=== PATIENT | male | born 1950 | race Caucasian/White ===

== ENCOUNTER 2020-12-01 02:01 | Day surgery (SDC) | payer MEDICARE, BC ==
[2020-12-01] MEDS ORDERED: Sodium Chloride 0.9% 10 ML Syringe FLUSH PRN (02:33)
[2020-12-01] MEDS ORDERED: Ondansetron 4 MG/2 ML SDV IVPUSH ONE (02:34)
[2020-12-01] MEDS ORDERED: Sodium Chloride 0.9% 1,000 ML IV ONE (02:34)
[2020-12-01] MEDS ORDERED: HYDROmorphone 1 MG/ML Syringe IVPUSH ONE ×2 (02:34→08:36)
--- NOTE | 2020-12-01 03:24 | EDM.PDOC ---
ED HPI GENERAL MEDICAL PROBLEM - General Chief Complaint: Abdominal Pain Stated Complaint: UPPER ABDOMINAL PAIN/VOMITING Time Seen by Provider: 12/01/20 02:25 Source of Information: Reports: Patient History Limitations: Reports: No Limitations - History of Present Illness INITIAL COMMENTS - FREE TEXT/NARRATIVE: Patient is a 70-year-old male who complains of having severe epigastric pain started about 6:00 last night after he was eating dinner. Patient did have a fatty meal including several hotdogs. He denies ever having similar symptoms denies any radiation of the pain but states it is severe close to 10 out of 10 in intensity. Patient has vomited twice denies any diarrhea any bloody or tarry stools or any hematemesis. He did take some Tylenol and ibuprofen which did not give him any relief. He denies any dysuria hematuria or flank pain. Patient denies any past surgical history. He does not drink alcohol. Onset: Today Duration: Hour(s): (8), Getting Worse Location: Reports: Abdomen Quality: Reports: Ache, Sharp Severity: Severe Improves with: Reports: None Worsens with: Reports: Eating, Movement Associated Symptoms: Reports: Nausea/Vomiting. Denies: Chest Pain, Cough, Fever/Chills, Shortness of Breath Treatments [employer]: Reports: Acetaminophen, NSAIDS Epigastric Pain Score (Numeric/FACES): 10 - Related Data Allergies Allergy/AdvReac Type Severity Reaction Status Date / Time No Known Allergies Allergy Verified 12/01/20 02:15 Home Meds: Home Meds Tamsulosin [Flomax] 0.4 mg PO DAILY 12/01/20 [History] Past Medical History - Infectious Disease History Infectious Disease History: Reports: Novel Coronavirus Social & Family History - Tobacco Use Tobacco Use Status *Q: Never Tobacco User ED ROS GENERAL - Review of Systems Review Of Systems: Comprehensive ROS is negative, except as noted in HPI. ED EXAM, GI/ABD - Physical Exam Exam: See Below Exam Limited By: No Limitations General Appearance: Alert, Moderate Distress Head: Atraumatic Neck: Normal Inspection, Supple Respiratory/Chest: No Respiratory Distress, Lungs Clear, Normal Breath Sounds Cardiovascular: Regular Rate, Rhythm, No JVD GI/Abdominal Exam: Tender, Abnormal Bowel Sounds. No: Distended, Guarding, Hepatomegaly, Splenomegaly Back Exam: Normal Inspection Extremities: Normal Inspection, No Pedal Edema Neurological: Alert, Oriented Psychiatric: Normal Affect Skin Exam: Warm, Dry, Normal Color Course - Vital Signs Text/Narrative:: Patient's lab work appears to be normal. He is feeling much better with IV fluids and 1 mg Dilaudid. Patient states his pain is down to a 1 out of 10 in intensity. Patient's lactate returned elevated at 2.5. He has a mild bandemia with 72 neutrophils and [address] scan is showing that he has cholelithiasis with thickening of his gallbladder wall consistent with acute cho lecystitis. Patient was discussed with Dr. Enriquez who did not want a ultrasound of the gallbladder and after consultation with anesthesia over patient's bradycardia it was decided that he could have is cholecystectomy done here. She has asked me to write bridging orders which I have done and he has had a dose of cefoxitin 2 g IV and continuing IV fluids while were waiting for the repeat lactate. Patient is aware of this plan and he looks dramatically improved from his previous symptoms upon arrival. Last Recorded V/S: Last Vital Signs Temp 98.2 F 12/01/20 02:12 Pulse 86 12/01/20 02:12 Resp 18 12/01/20 02:12 BP 190/108 H 12/01/20 02:12 Pulse Ox 99 12/01/20 02:12 - Orders/Labs/Meds Orders: Active Orders 24 hr Category Date Time Status EKG Documentation Completion [RC] STAT Care 12/01/20 04:25 Active Peripheral IV Care [RC] . DIRECTED Care 12/01/20 02:34 Active Abdomen Ltd [US] Stat Exams 12/01/20 05:21 Stop Req Abdomen Pelvis w Cont [CT] Stat Exams 12/01/20 02:33 Taken CORONAVIRUS COVID-19 TERI [MOLEC] Stat Lab 12/01/20 06:16 Ordered LACTIC ACID [CHEM] Stat Lab 12/01/20 05:55 Received Sodium Chloride 0.9% [Normal Saline] 100 ml Med 12/01/20 04:30 Active IV ASDIRECTED Sodium Chloride 0.9% [Saline Flush] Med 12/01/20 02:33 Active 10 ml FLUSH ASDIRECTED PRN Sodium Chloride 0.9% [Saline Flush] Med 12/01/20 04:30 Active 10 ml FLUSH BOLUS cefOXitin [Mefoxin in Dextrose,Iso-Osm 2 GM/50 ML] 2 gm Med 12/01/20 06:10 Ordered Premix Bag 1 bag IV ONETIME Peripheral IV Insertion Adult [OM.PC] Routine Oth 12/01/20 02:32 Ordered Medication Orders Sodium Chloride (Normal Saline) 100 mls @ 60 drops/min IV ASDIRECTED SABINE Last Admin: 12/01/20 04:46 Dose: 60 drops/min Documented by: ONEIGIN Cefoxitin Sodium 2 gm/ Premix 50 mls @ 100 mls/hr IV ONETIME ONE Stop: 12/01/20 06:39 Sodium Chloride (Sodium Chloride 0.9% 10 Ml Syringe) 10 ml FLUSH ASDIRECTED PRN PRN Reason: Keep Vein Open Last Admin: 12/01/20 02:45 Dose: 10 ml Documented by: ESTELLE Sodium Chloride (Sodium Chloride 0.9% 10 Ml Syringe) 10 ml FLUSH BOLUS SABINE Labs: Laboratory Tests 12/01/20 12/01/20 12/01/20 Range/Units 02:10 02:10 02:10 WBC 8.90 (4.23-9.07) K/mm3 RBC 5.05 (4.63-6.08) M/mm3 Hgb 15.6 (13.7-17.5) gm/dl Hct 45.0 (40.1-51.0) % MCV 89.1 (79.0-92.2) fl MCH 30.9 (25.7-32.2) pg MCHC 34.7 (32.2-35.5) g/dl RDW Std Deviation 39.4 (35.1-43.9) fL Plt Count 181 (163-337) K/mm3 MPV 9.4 (9.4-12.3) fl Neutrophils % (Manual) 72 H (40-60) % Band Neutrophils % 2 (0-10) % Lymphocytes % (Manual) 20 (20-40) % Atypical Lymphs % 0 % Monocytes % (Manual) 6 (2-10) % Eosinophils % (Manual) 0 L (0.8-7.0) % Basophils % (Manual) 0 L (0.2-1.2) Platelet Estimate Adequate Plt Morphology Comment Normal RBC Morph Comment Normal Sodium 143 (136-145) mEq/L Potassium 3.6 (3.5-5.1) mEq/L Chloride 104 (98-107) mEq/L Carbon Dioxide 24 (21-32) mEq/L Anion Gap 18.6 H (5-15) BUN 17 (7-18) mg/dL Creatinine 1.4 H (0.7-1.3) mg/dL Est Cr Clr Drug Dosing 57.08 mL/min Estimated GFR (MDRD) 50 (>60) mL/min BUN/Creatinine Ratio 12.1 L (14-18) Glucose 146 H (70-99) mg/dL Lactic Acid (0.4-2.0) mmol/L Calcium 9.1 (8.5-10.1) mg/dL Total Bilirubin 0.7 (0.2-1.0) mg/dL AST 26 (15-37) U/L ALT 39 (16-63) U/L Alkaline Phosphatase 84 (46-116) U/L Troponin I < 0.017 (0.00-0.056) ng/mL Total Protein 7.7 (6.4-8.2) g/dl Albumin 4.1 (3.4-5.0) g/dl Globulin 3.6 gm/dL Albumin/Globulin Ratio 1.1 (1-2) Lipase 55 L (73-393) U/L /07/23 Range/Units 02:50 WBC (4.23-9.07) K/mm3 RBC (4.63-6.08) M/mm3 Hgb (13.7-17.5) gm/dl Hct (40.1-51.0) % MCV (79.0-92.2) fl MCH (25.7-32.2) pg MCHC (32.2-35.5) g/dl RDW Std Deviation (35.1-43.9) fL Plt Count (163-337) K/mm3 MPV (9.4-12.3) fl Neutrophils % (Manual) (40-60) % Band Neutrophils % (0-10) % Lymphocytes % (Manual) (20-40) % Atypical Lymphs % % Monocytes % (Manual) (2-10) % Eosinophils % (Manual) (0.8-7.0) % Basophils % (Manual) (0.2-1.2) Platelet Estimate Plt Morphology Comment RBC Morph Comment Sodium (136-145) mEq/L Potassium (3.5-5.1) mEq/L Chloride (98-107) mEq/L Carbon Dioxide (21-32) mEq/L Anion Gap (5-15) BUN (7-18) mg/dL Creatinine (0.7-1.3) mg/dL Est Cr Clr Drug Dosing mL/min Estimated GFR (MDRD) (>60) mL/min BUN/Creatinine Ratio (14-18) Glucose (70-99) mg/dL Lactic Acid 2.5 H* (0.4-2.0) mmol/L Calcium (8.5-10.1) mg/dL Total Bilirubin (0.2-1.0) mg/dL AST (15-37) U/L ALT (16-63) U/L Alkaline Phosphatase (46-116) U/L Troponin I (0.00-0.056) ng/mL Total Protein (6.4-8.2) g/dl Albumin (3.4-5.0) g/dl Globulin gm/dL Albumin/Globulin Ratio (1-2) Lipase (73-393) U/L Meds: Medications Generic Name Dose Route Start Last Admin Trade Name Freq PRN Reason Stop Dose Admin Sodium Chloride 100 mls @ 60 drops/min 12/01/20 04:30 12/01/20 04:46 Normal Saline IV 60 drops/min ASDIRECTED SABINE Administration Cefoxitin Sodium 2 gm/ Premix 50 mls @ 100 mls/hr 12/01/20 06:10 IV 12/01/20 06:39 ONETIME ONE Sodium Chloride 10 ml 12/01/20 02:33 12/01/20 02:45 Sodium Chloride 0.9% 10 Ml Syringe FLUSH 10 ml ASDIRECTED PRN Administration Keep Vein Open Sodium Chloride 10 ml 12/01/20 04:30 Sodium Chloride 0.9% 10 Ml Syringe FLUSH BOLUS SABINE Discontinued Medications Generic Name Dose Route Start Last Admin Trade Name Freq PRN Reason Stop Dose Admin Hydromorphone HCl 1 mg 12/01/20 02:34 12/01/20 02:41 Hydromorphone 1 Mg/Ml Syringe IVPUSH 12/01/20 02:35 1 mg ONETIME ONE Administration Hydromorphone HCl 0.5 mg 12/01/20 04:00 12/01/20 04:04 Hydromorphone 0.5 Mg/0.5 Ml Syringe IVPUSH 12/01/20 04:01 0.5 mg ONETIME ONE Administration Sodium Chloride 1,000 mls @ 1,000 mls/hr 12/01/20 02:34 12/01/20 02:40 Normal Saline IV 12/01/20 03:33 1,000 mls/hr ONETIME ONE Administration Piperacillin Sod/Tazobactam 100 mls @ 200 mls/hr 12/01/20 05:23 Sod 4.5 gm/ Sodium Chloride IV 12/01/20 05:52 ONETIME ONE Iopamidol 100 ml 12/01/20 04:18 12/01/20 04:46 Iopamidol 612 Mg/Ml 100 Ml Bottle IVPUSH 12/01/20 04:19 100 ml ONETIME ONE Administration Ondansetron HCl 4 mg 12/01/20 02:34 12/01/20 02:40 Ondansetron 4 Mg/2 Ml Sdv IVPUSH 12/01/20 02:35 4 mg ONETIME ONE Administration Departure - Departure Time of Disposition: 06:22 Disposition: Refer to Observation Condition: Good Clinical Impression: Cholecystitis - Discharge Information Referrals: Efrain Brooks MD [Primary Care Provider] - Forms: ED Department Discharge Sepsis Event Note (ED) - Evaluation Sepsis Screening Result: No Definite Risk - Focused Exam Vital Signs: Vital Signs Temp Pulse Resp BP Pulse Ox 12/01/20 02:12 98.2 F 86 18 190/108 H 99 - My Orders Last 24 Hours: My Active Orders 12/01/20 02:32 Peripheral IV Insertion Adult [OM.PC] Routine 12/01/20 02:33 Abdomen Pelvis w Cont [CT] Stat Sodium Chloride 0.9% [Saline Flush] 10 ml FLUSH ASDIRECTED PRN 12/01/20 02:34 Peripheral IV Care [RC] . DIRECTED 12/01/20 04:25 EKG Documentation Completion [RC] STAT 12/01/20 04:30 Sodium Chloride 0.9% [Normal Saline] 100 ml IV ASDIRECTED Sodium Chloride 0.9% [Saline Flush] 10 ml FLUSH BOLUS 12/01/20 05:21 Abdomen Ltd [US] Stat 12/01/20 05:55 LACTIC ACID [CHEM] Stat 12/01/20 06:10 cefOXitin [Mefoxin in Dextrose,Iso-Osm 2 GM/50 ML] 2 gm Premix Bag 1 bag IV ONETIME 12/01/20 06:16 CORONAVIRUS COVID-19 TERI [MOLEC] Stat - Assessment/Plan Last 24 Hours: My Active Orders 12/01/20 02:32 Peripheral IV Insertion Adult [OM.PC] Routine 12/01/20 02:33 Abdomen Pelvis w Cont [CT] Stat Sodium Chloride 0.9% [Saline Flush] 10 ml FLUSH ASDIRECTED PRN 12/01/20 02:34 Peripheral IV Care [RC] . DIRECTED 12/01/20 04:25 EKG Documentation Completion [RC] STAT 12/01/20 04:30 Sodium Chloride 0.9% [Normal Saline] 100 ml IV ASDIRECTED Sodium Chloride 0.9% [Saline Flush] 10 ml FLUSH BOLUS 12/01/20 05:21 Abdomen Ltd [US] Stat 12/01/20 05:55 LACTIC ACID [CHEM] Stat 12/01/20 06:10 cefOXitin [Mefoxin in Dextrose,Iso-Osm 2 GM/50 ML] 2 gm Premix Bag 1 bag IV ONETIME 12/01/20 06:16 CORONAVIRUS COVID-19 TERI [MOLEC] Stat
[2020-12-01] MEDS ORDERED: HYDROmorphone 0.5 MG/0.5 ML Syringe IVPUSH ONE ×2 (04:00→06:21)
[2020-12-01] MEDS ORDERED: Iopamidol 612 MG/ML 100 ML Bottle IVPUSH ONE (04:18)
[2020-12-01] MEDS ORDERED: Sodium Chloride 0.9% 100 ML IV SCH (04:30)
[2020-12-01] MEDS ORDERED: Sodium Chloride 0.9% 10 ML Syringe FLUSH SCH (04:30)
[2020-12-01] MEDS ORDERED: Piperacillin/Tazobactam 4.5 GM in Sodium Chloride 0.9% 100 ML IV ONE (05:23)
[2020-12-01] MEDS ORDERED: cefOXitin 2 GM in Premix Bag 1 BAG IV ONE (06:10)
--- NOTE | 2020-12-01 07:35 | CT ---
CT abdomen and pelvis Technique: Multiple axial sections were obtained from above the dome of the diaphragm inferiorly through the pubic symphysis. Delayed images were also obtained through the abdomen and pelvis. Reconstructed coronal and sagittal images were obtained. Comparison: No prior CT abdomen or pelvis study is available. Findings: Visualized lung bases show nothing acute. Liver contains no focal abnormality. Gallbladder is slightly distended. Difficult to evaluate for gallbladder wall thickening on CT exam. No surrounding inflammatory change is seen. No calcified gallstones are definitely present. There is contrast noted within the distal esophagus compatible with reflux. Spleen is normal. Adrenal glands show no nodule. Kidneys show symmetric contrast enhancement without hydronephrosis or mass. Delayed images show a small amount of contrast within nondilated ureters. Abdominal aorta shows atherosclerotic change with no aneurysm. No retroperitoneal adenopathy is seen. Pancreas shows no discrete abnormality. No mesenteric abnormalities are seen. Appendix is not visualized with certainty. No pelvic mass or adenopathy is definitely seen. Some portions of the pelvis are not seen due to artifact caused by bilateral hip prostheses. Minimal diverticulosis is seen. No inflammatory change or free fluid is seen. Bone window settings were reviewed which show scattered endplate spurring within the spine with mild degenerative apophyseal change. No acute osseous abnormality is appreciated. Impression: 1. Slightly distended gallbladder. Please correlate if patient has right upper quadrant symptoms to indicate gallbladder ultrasound. 2. Mild gastroesophageal reflux. 3. Other findings believed to be nonacute as described above. Diagnostic code #2 I agree with preliminary report from [facility], finalized on 12/01/20, 6:10 AM CDT, code 1
--- NOTE | 2020-12-01 07:48 | PCM.PREANE ---
Preanesthetic Assessment - Procedure Proposed Procedure: lap Eloisa - Anesthesia/Transfusion/Family Hx Anesthesia History: Prior Anesthesia Without Reaction Family History of Anesthesia Reaction: No Transfusion History: No Prior Transfusion(s) - Review of Systems General: Fatigue Pulmonary: No Symptoms Cardiovascular: No Symptoms Gastrointestinal: Abdominal Pain, Nausea Neurological: Numbness (comes goes in left hand) Other: Reports: None, Neck Pain (from diving as a kid) - Physical Assessment NPO Status Date: 12/01/20 NPO Status Time: 04:00 Vital Signs: Last Vital Signs Temp 36.8 C 12/01/20 02:12 Pulse 86 12/01/20 02:12 Resp 18 12/01/20 02:12 BP 190/108 H 12/01/20 02:12 Pulse Ox 99 12/01/20 02:12 Height: 1.88 m Weight: 90.718 kg ASA Class: 2 Mental Status: Alert & Oriented x3 Airway Class: Mallampati = 1 Dentition: Reports: Partial, Staves(s), Implants (top right) Thyro-Mental Finger Breadths: 3 Mouth Opening Finger Breadths: 3 ROM/Head Extension: Full Lungs: Clear to Auscultation, Normal Respiratory Effort Cardiovascular: Regular Rate, Regular Rhythm, Bradycardia (works out two times a day) - Lab Values: Laboratory Last Values WBC 8.90 K/mm3 (4.23-9.07) 12/01/20 02:10 RBC 5.05 M/mm3 (4.63-6.08) 12/01/20 02:10 Hgb 15.6 gm/dl (13.7-17.5) 12/01/20 02:10 Hct 45.0 % (40.1-51.0) 12/01/20 02:10 MCV 89.1 fl (79.0-92.2) 12/01/20 02:10 MCH 30.9 pg (25.7-32.2) 12/01/20 02:10 MCHC 34.7 g/dl (32.2-35.5) 12/01/20 02:10 RDW Std Deviation 39.4 fL (35.1-43.9) 12/01/20 02:10 Plt Count 181 K/mm3 (163-337) 12/01/20 02:10 MPV 9.4 fl (9.4-12.3) 12/01/20 02:10 Neutrophils % (Manual) 72 % (40-60) H 12/01/20 02:10 Band Neutrophils % 2 % (0-10) 12/01/20 02:10 Lymphocytes % (Manual) 20 % (20-40) 12/01/20 02:10 Atypical Lymphs % 0 % 12/01/20 02:10 Monocytes % (Manual) 6 % (2-10) 12/01/20 02:10 Eosinophils % (Manual) 0 % (0.8-7.0) L 12/01/20 02:10 Basophils % (Manual) 0 (0.2-1.2) L 12/01/20 02:10 Platelet Estimate Adequate 12/01/20 02:10 Plt Morphology Comment Normal 12/01/20 02:10 RBC Morph Comment Normal 12/01/20 02:10 Sodium 143 mEq/L (136-145) 12/01/20 02:10 Potassium 3.6 mEq/L (3.5-5.1) 12/01/20 02:10 Chloride 104 mEq/L (98-107) 12/01/20 02:10 Carbon Dioxide 24 mEq/L (21-32) 12/01/20 02:10 Anion Gap 18.6 (5-15) H 12/01/20 02:10 BUN 17 mg/dL (7-18) 12/01/20 02:10 Creatinine 1.4 mg/dL (0.7-1.3) H 12/01/20 02:10 Est Cr Clr Drug Dosing 57.08 mL/min 12/01/20 02:10 Estimated GFR (MDRD) 50 mL/min (>60) 12/01/20 02:10 BUN/Creatinine Ratio 12.1 (14-18) L 12/01/20 02:10 Glucose 146 mg/dL (70-99) H 12/01/20 02:10 Lactic Acid 0.8 mmol/L (0.4-2.0) 12/01/20 05:55 Calcium 9.1 mg/dL (8.5-10.1) 12/01/20 02:10 Total Bilirubin 0.7 mg/dL (0.2-1.0) 12/01/20 02:10 AST 26 U/L (15-37) 12/01/20 02:10 ALT 39 U/L (16-63) 12/01/20 02:10 Alkaline Phosphatase 84 U/L (46-116) 12/01/20 02:10 Troponin I < 0.017 ng/mL (0.00-0.056) 12/01/20 02:10 Total Protein 7.7 g/dl (6.4-8.2) 12/01/20 02:10 Albumin 4.1 g/dl (3.4-5.0) 12/01/20 02:10 Globulin 3.6 gm/dL 12/01/20 02:10 Albumin/Globulin Ratio 1.1 (1-2) 12/01/20 02:10 Lipase 55 U/L (73-393) L 12/01/20 02:10 SARS-CoV-2 RNA (TERI) Negative (NEGATIVE) 12/01/20 06:18 - Allergies Allergies/Adverse Reactions: Allergies Allergy/AdvReac Type Severity Reaction Status Date / Time No Known Allergies Allergy Verified 12/01/20 02:15 - Blood Blood Available: No Product(s) Available: None - Anesthesia Plan Pre-Op Medication Ordered: None - Acknowledgements Anesthesia Type Planned: General Anesthesia Pt an Appropriate Candidate for the Planned Anesthesia: Yes Alternatives and Risks of Anesthesia Discussed w Pt/Guardian: Yes Pt/Guardian Understands and Agrees with Anesthesia Plan: Yes PreAnesthesia Questionnaire - Infectious Disease History Infectious Disease History: Reports: Novel Coronavirus - SUBSTANCE USE Tobacco Use Status *Q: Never Tobacco User - HOME MEDS Home Medications: Home Meds Tamsulosin [Flomax] 0.4 mg PO DAILY 12/01/20 [History] - CURRENT (IN HOUSE) MEDS Current Meds: Current Medications Sodium Chloride (Normal Saline) 100 mls @ 60 drops/min IV ASDIRECTED SABINE Last Admin: 12/01/20 04:46 Dose: 60 drops/min Documented by: Sodium Chloride (Sodium Chloride 0.9% 10 Ml Syringe) 10 ml FLUSH ASDIRECTED PRN PRN Reason: Keep Vein Open Last Admin: 12/01/20 02:45 Dose: 10 ml Documented by: Sodium Chloride (Sodium Chloride 0.9% 10 Ml Syringe) 10 ml FLUSH BOLUS SABINE Discontinued Medications Hydromorphone HCl (Hydromorphone 1 Mg/Ml Syringe) 1 mg IVPUSH ONETIME ONE Stop: 12/01/20 02:35 Last Admin: 12/01/20 02:41 Dose: 1 mg Documented by: Hydromorphone HCl (Hydromorphone 0.5 Mg/0.5 Ml Syringe) 0.5 mg IVPUSH ONETIME ONE Stop: 12/01/20 04:01 Last Admin: 12/01/20 04:04 Dose: 0.5 mg Documented by: Hydromorphone HCl (Hydromorphone 0.5 Mg/0.5 Ml Syringe) 0.5 mg IVPUSH ONETIME ONE Stop: 12/01/20 06:22 Last Admin: 12/01/20 06:26 Dose: 0.5 mg Documented by: Sodium Chloride (Normal Saline) 1,000 mls @ 1,000 mls/hr IV ONETIME ONE Stop: 12/01/20 03:33 Last Admin: 12/01/20 02:40 Dose: 1,000 mls/hr Documented by: Piperacillin Sod/Tazobactam (Sod 4.5 gm/ Sodium Chloride) 100 mls @ 200 mls/hr IV ONETIME ONE Stop: 12/01/20 05:52 Cefoxitin Sodium 2 gm/ Premix 50 mls @ 100 mls/hr IV ONETIME ONE Stop: 12/01/20 06:39 Last Admin: 12/01/20 06:36 Dose: 100 mls/hr Documented by: Iopamidol (Iopamidol 612 Mg/Ml 100 Ml Bottle) 100 ml IVPUSH ONETIME ONE Stop: 12/01/20 04:19 Last Admin: 12/01/20 04:46 Dose: 100 ml Documented by: Ondansetron HCl (Ondansetron 4 Mg/2 Ml Sdv) 4 mg IVPUSH ONETIME ONE Stop: 12/01/20 02:35 Last Admin: 12/01/20 02:40 Dose: 4 mg Documented by:
[2020-12-01] MEDS ORDERED: Bupivacaine 0.5%/EPINEPHrine 1:200,000 50 ML MDV ONE (07:55)
[2020-12-01] MEDS ORDERED: Lidocaine 1% with EPINEPHrine 1:100,000 10 ML MDV ONE (07:55)
--- NOTE | 2020-12-01 08:05 | US ---
Limited abdominal ultrasound: Multiple real-time images of the upper right abdomen were obtained. Comparison: Prior CT abdomen and pelvis study 12/01/20. Findings: Gallbladder shows evidence of cholelithiasis. Sludge is also noted within the gallbladder. No gallbladder wall thickening is seen. Common bile duct measures slightly prominent up to 9 mm. Liver shows no focal abnormality. Right kidney shows no hydronephrosis or mass. Right kidney has a length of 10.7 cm. Proximal aorta is slightly ectatic at 2.9 cm in AP dimension. Pancreas is not completely seen. Visualized portions of the pancreas appear within normal limits. Inferior vena cava is patent. Main portal vein shows normal hepatopedal flow. Impression: 1. Gallbladder shows cholelithiasis with sludge. No biliary duct dilatation is seen at this time. Common bile duct is slightly prominent in size measuring up to 9 mm. 2. Mildly ectatic proximal abdominal aorta with AP dimension of 2.9 cm. 3. No additional abnormality is identified on right upper quadrant abdominal ultrasound. Diagnostic code #3
[2020-12-01] MEDS ORDERED: Rocuronium 50 MG/5 ML Vial ONE (08:21)
[2020-12-01] MEDS ORDERED: Ondansetron 4 MG/2 ML SDV ONE (08:21)
[2020-12-01] MEDS ORDERED: Propofol 200 MG/20 ML SDV ONE (08:21)
[2020-12-01] MEDS ORDERED: fentaNYL 250 MCG/5 ML SDV ONE (08:21)
[2020-12-01] MEDS ORDERED: ceFAZolin 1 GM Vial ONE (10:05)
[2020-12-01] MEDS ORDERED: Lactated Ringers 1,000 ML ONE (10:35)
--- NOTE | 2020-12-01 11:14 | PCM.OPNOTE ---
- General Post-Op/Procedure Note Date of Surgery/Procedure: 12/01/20 Operative Procedure(s): laparoscopic cholecystectomy Findings: acute cholecystitis Pre Op Diagnosis: acute cholecystitis Post-Op Diagnosis: same Anesthesia Technique: General ET Tube, Local Primary Surgeon: Kelly Cosme Anesthesia Provider: Jesus Matute Pathology: gallbladder with contents Fluid Replacement, Intraop: 1,800 Output, Urine Amount: 0 EBL in mLs: 15 Complications: none apparent Condition: Good
--- NOTE | 2020-12-01 11:19 | PCM.HP.2 ---
H&P History of Present Illness - General Date of Service: 12/01/20 Admit Problem/Dx: Admission Diagnosis/Problem Admission Diagnosis/Problem Cholecystitis Source of Information: Patient, Family, Provider History Limitations: Reports: No Limitations - History of Present Illness Initial Comments - Free Text/Narative: The patient is a 70-year-old gentleman who presented to the emergency department complaining of severe epigastric pain. The pain started last evening. He rep orted some nausea and vomiting, he somewhat induced the vomiting thinking that this would relieve his symptoms. However, he did not feel better he presented to the emergency department and had work-up which was revealing for acute cholecystitis. He denies any previous episodes of similar pain. He denies any jaundice or icterus. He underwent lab evaluation with a CBC and CMP which revealed a left shift as well has elevation in lactate that resolved with IV fluids. His CT scan was indicative of acute cholecystitis per verbal report. He also had a gallbladder ultrasound follow which indicated cholelithiasis. Epigastric Pain Score (Numeric/FACES): 10 - Related Data Allergies/Adverse Reactions: Allergies Allergy/AdvReac Type Severity Reaction Status Date / Time No Known Allergies Allergy Verified 12/01/20 02:15 Home Medications: Home Meds Tamsulosin [Flomax] 0.4 mg PO DAILY 12/01/20 [History] Past Medical History - Infectious Disease History Infectious Disease History: Reports: Novel Coronavirus - Past Surgical History GI Surgical History: Reports: Appendectomy Musculoskeletal Surgical History: Reports: Hip Replacement (bilateral) Social & Family History - Family History Cardiac: Reports: None Respiratory: Reports: None - Tobacco Use Tobacco Use Status *Q: Never Tobacco User H&P Review of Systems - Review of Systems: Review Of Systems: See Below General: Reports: No Symptoms HEENT: Reports: No Symptoms Pulmonary: Reports: No Symptoms Cardiovascular: Reports: No Symptoms Gastrointestinal: Reports: Abdominal Pain Genitourinary: Reports: No Symptoms Musculoskeletal: Reports: No Symptoms Skin: Reports: No Symptoms Neurological: Reports: No Symptoms Hematologic/Lymphatic: Reports: No Symptoms Exam - Exam Exam: See Below - Vital Signs Vital Signs: Last Vital Signs Temp 36.8 C 12/01/20 02:12 Pulse 86 12/01/20 02:12 Resp 18 12/01/20 02:12 BP 190/108 H 12/01/20 02:12 Pulse Ox 99 12/01/20 02:12 Weight: 90.718 kg - Exam Quality Assessment: No: Supplemental Oxygen General: Alert, Oriented HEENT: Conjunctiva Clear, EOMI Neck: Supple Lungs: Normal Respiratory Effort Cardiovascular: Regular Rate, Regular Rhythm GI/Abdominal Exam: Soft, No Distention, Tender (in epigastrium and RUQ) Extremities: Normal Inspection, No Pedal Edema Peripheral Pulses: 2+: Dorsalis Pedis (L), Dorsalis Pedis (R) Skin: Dry, Intact Neurological: Cranial Nerves Intact Neuro Extensive - Mental Status: Normal Mood/Affect - Patient Data Lab Results Last 24 hrs: Laboratory Results - last 24 hr 12/01/20 12/01/20 12/01/20 Range/Units 02:10 02:10 02:10 WBC 8.90 (4.23-9.07) K/mm3 RBC 5.05 (4.63-6.08) M/mm3 Hgb 15.6 (13.7-17.5) gm/dl Hct 45.0 (40.1-51.0) % MCV 89.1 (79.0-92.2) fl MCH 30.9 (25.7-32.2) pg MCHC 34.7 (32.2-35.5) g/dl RDW Std Deviation 39.4 (35.1-43.9) fL Plt Count 181 (163-337) K/mm3 MPV 9.4 (9.4-12.3) fl Neutrophils % (Manual) 72 H (40-60) % Band Neutrophils % 2 (0-10) % Lymphocytes % (Manual) 20 (20-40) % Atypical Lymphs % 0 % Monocytes % (Manual) 6 (2-10) % Eosinophils % (Manual) 0 L (0.8-7.0) % Basophils % (Manual) 0 L (0.2-1.2) Platelet Estimate Adequate Plt Morphology Comment Normal RBC Morph Comment Normal Sodium 143 (136-145) mEq/L Potassium 3.6 (3.5-5.1) mEq/L Chloride 104 (98-107) mEq/L Carbon Dioxide 24 (21-32) mEq/L Anion Gap 18.6 H (5-15) BUN 17 (7-18) mg/dL Creatinine 1.4 H (0.7-1.3) mg/dL Est Cr Clr Drug Dosing 57.08 mL/min Estimated GFR (MDRD) 50 (>60) mL/min BUN/Creatinine Ratio 12.1 L (14-18) Glucose 146 H (70-99) mg/dL Lactic Acid (0.4-2.0) mmol/L Calcium 9.1 (8.5-10.1) mg/dL Total Bilirubin 0.7 (0.2-1.0) mg/dL AST 26 (15-37) U/L ALT 39 (16-63) U/L Alkaline Phosphatase 84 (46-116) U/L Troponin I < 0.017 (0.00-0.056) ng/mL Total Protein 7.7 (6.4-8.2) g/dl Albumin 4.1 (3.4-5.0) g/dl Globulin 3.6 gm/dL Albumin/Globulin Ratio 1.1 (1-2) Lipase 55 L (73-393) U/L SARS-CoV-2 RNA (TERI) (NEGATIVE) 12/01/20 12/01/20 12/01/20 Range/Units 02:50 05:55 06:18 WBC (4.23-9.07) K/mm3 RBC (4.63-6.08) M/mm3 Hgb (13.7-17.5) gm/dl Hct (40.1-51.0) % MCV (79.0-92.2) fl MCH (25.7-32.2) pg MCHC (32.2-35.5) g/dl RDW Std Deviation (35.1-43.9) fL Plt Count (163-337) K/mm3 MPV (9.4-12.3) fl Neutrophils % (Manual) (40-60) % Band Neutrophils % (0-10) % Lymphocytes % (Manual) (20-40) % Atypical Lymphs % % Monocytes % (Manual) (2-10) % Eosinophils % (Manual) (0.8-7.0) % Basophils % (Manual) (0.2-1.2) Platelet Estimate Plt Morphology Comment RBC Morph Comment Sodium (136-145) mEq/L Potassium (3.5-5.1) mEq/L Chloride (98-107) mEq/L Carbon Dioxide (21-32) mEq/L Anion Gap (5-15) BUN (7-18) mg/dL Creatinine (0.7-1.3) mg/dL Est Cr Clr Drug Dosing mL/min Estimated GFR (MDRD) (>60) mL/min BUN/Creatinine Ratio (14-18) Glucose (70-99) mg/dL Lactic Acid 2.5 H* 0.8 (0.4-2.0) mmol/L Calcium (8.5-10.1) mg/dL Total Bilirubin (0.2-1.0) mg/dL AST (15-37) U/L ALT (16-63) U/L Alkaline Phosphatase (46-116) U/L Troponin I (0.00-0.056) ng/mL Total Protein (6.4-8.2) g/dl Albumin (3.4-5.0) g/dl Globulin gm/dL Albumin/Globulin Ratio (1-2) Lipase (73-393) U/L SARS-CoV-2 RNA (TERI) Negative (NEGATIVE) Result Diagrams: 12/01/20 02:10 12/01/20 02:10 Sepsis Event Note - Evaluation Sepsis Screening Result: No Definite Risk - Focused Exam Vital Signs: Vital Signs Temp Pulse Resp BP Pulse Ox 12/01/20 02:12 36.8 C 86 18 190/108 H 99 *Q Meaningful Use (ADM) - VTE Risk Assess *Q Each Risk Factor Represents 1 Point: Minor Surgery Planned Total Score 1 Point Risk Factors: 1 Each Risk Factor Represents 2 Points: Age 60 - 74 Years Total Score 2 Point Risk Factors: 2 Each Risk Factor Represents 3 Points: None, History of DVT/PE Total Score 3 Point Risk Factors: 3 - Problem List (1) Cholecystitis SNOMED Code(s): 44401230 ICD Code: K81.9 - CHOLECYSTITIS, UNSPECIFIED Status: Acute Current Visit: Yes Problem List Initiated/Reviewed/Updated: Yes Orders Last 24hrs: Active Orders 24 hr Category Date Time Status Patient Status [ADT] Routine ADT 12/01/20 09:22 Active EKG Documentation Completion [RC] STAT Care 12/01/20 04:25 Active Peripheral IV Care [RC] . DIRECTED Care 12/01/20 02:34 Active Sodium Chloride 0.9% [Normal Saline] 100 ml Med 12/01/20 04:30 Active IV ASDIRECTED Sodium Chloride 0.9% [Saline Flush] Med 12/01/20 02:33 Active 10 ml FLUSH ASDIRECTED PRN Sodium Chloride 0.9% [Saline Flush] Med 12/01/20 04:30 Active 10 ml FLUSH BOLUS Peripheral IV Insertion Adult [OM.PC] Routine Oth 12/01/20 02:32 Ordered Schedule Procedure [COMM] Stat Oth 12/01/20 09:22 Ordered Medication Orders Sodium Chloride (Normal Saline) 100 mls @ 60 drops/min IV ASDIRECTED SABINE Last Admin: 12/01/20 04:46 Dose: 60 drops/min Documented by: ODALISIGIN Sodium Chloride (Sodium Chloride 0.9% 10 Ml Syringe) 10 ml FLUSH ASDIRECTED PRN PRN Reason: Keep Vein Open Last Admin: 12/01/20 02:45 Dose: 10 ml Documented by: ESTELLE Sodium Chloride (Sodium Chloride 0.9% 10 Ml Syringe) 10 ml FLUSH BOLUS [facility] Assessment/Plan Comment:: 70-year-old gentleman with clinical findings of acute cholecystitis -Plan for laparoscopic cholecystectomy, possible open. Discussed risks of bleeding, infection, intra-abdominal injury and bile duct injury. His written consent was obtained -IV cefoxitin administered in ER -IV fluid resuscitation We will assess need for inpatient stay based on intraoperative findings. Kelly Cosme MD General Surgery - Mortality Measure Prognosis:: Good
--- NOTE | 2020-12-01 11:26 | PCM.PRNOTE ---
- Free Text/Narrative Note: OPERATIVE REPORT Date of Surgery/Procedure: December 01, 2020 Operative Procedure(s): laparoscopic cholecystectomy Findings: Acute cholecystitis Pre Op Diagnosis: Acute cholecystitis Post-Op Diagnosis: Same Anesthesia Technique: General ET Tube Primary Surgeon: Kelly Cosme MD Anesthesia Provider: Jesus Matute CRNA Pathology: Gallbladder with contents Fluid Replacement, Intraop: 1800cc Output, Urine Amount: 0cc EBL: 15cc Drain/Tube Comments: None Indication for the procedure: The patient is a 70-year-old gentleman who presented to the emergency department with findings of acute onset abdominal pain consistent with acute cholecystitis on further work-up. The patient was counseled for laparoscopic cholecystectomy, with possible conversion to open. After discussion of the risks of infection, bleeding and injury to the bile duct as well as complication from intra-abdominal injury, the patient's consent was obtained. Description of the procedure: The patient was taken back to the operating room and placed in supine position on the operating table. SCD boots were placed and functional prior to the start of the procedure. Preoperative antibiotics were administered according to SCIP protocol, Ancef 2 g IV. A surgical timeout was performed. The patient then had induction of general anesthesia and was intubated without difficulty. The patient was prepped and draped in standard surgical fashion. We began by making an infraumbilical vertical incision and deepened this down through subcutaneous fat to the level of the fascia. This was grasped and incised. A stay suture of 0 Vicryl was placed in the fascia. His fascia was very tight so a 5 mm port was inserted into the abdomen using the Visiport technique through the incision that we had made. Insufflation was attached and we had appropriate opening pressures. The abdomen was then insufflated to 15 mmHg. We inserted a scope into the abdomen and inspected the area where we had entered. A TAP block was then performed using 1% lidocaine with epinephrine mixed with 0.5% bupivacaine with epinephrine. A 5 mm port was then placed in the subxiphoid region. The umbilical port was then upsized to the 12 mm Marina port. We then proceeded with placing our additional ports. Two additional 5mm ports placed under direct visualization in the right upper quadrant. The patient was then positioned with head up and right side up to facilitate exposure of the gallbladder. Once we had sufficiently exposed the dome of the gallbladder, it was apparent that the gallbladder was inflamed with evidence of hematoma in the wall of the gallbladder. It could not be grasped due to tense distention. A laparoscopic needle was then used to compress approximately 15 cc of bile from the gallbladder this was grasped and retracted cephalad. We proceeded with our dissection to expose the cystic duct and cystic artery. We did have a critical view. The cystic duct and artery were then clipped and cut using endoscopic scissors. We then proceeded to fully dissect the gallbladder off of the cystic plate using the Bovie device. The gallbladder was then placed in the Endo Catch bag and withdrawn towards the umbilical port. We then inspected the area of the dissection. There was no significant bleeding and hemostasis was achieved. The bile in the area was suctioned using the suction radio mechanic apprentice and irrigation used to clear the bile from the area. We then inspected the port sites and desufflated the abdomen. The ports were then removed. The gallbladder was withdrawn through the umbilical port site. We then proceeded to close the umbilical port site using an 0 Vicryl stitch. We had good closure of the fascia. A superficial 4-0 monocryl suture was used to approximate the skin. The skin was covered with Dermabond surgical glue. The patient tolerated the procedure well and was extubated without difficulty. The patient was transported to the PACU in stable condition. All sponge, needle counts correct. No immediate complications noted. Complications: None apparent Condition: Good Kelly Cosme MD General Surgery
[2020-12-01] MEDS ORDERED: HYDROmorphone 0.5 MG/0.5 ML Syringe IVPUSH PRN (11:35)
[2020-12-01] MEDS ORDERED: fentaNYL 100 MCG/2 ML SDV IVPUSH PRN (11:35)
--- NOTE | 2020-12-01 11:36 | PCM.POSTAN ---
POST ANESTHESIA ASSESSMENT - MENTAL STATUS Mental Status: Alert, Oriented - VITAL SIGNS Vital Signs: Last Vital Signs Temp 36.8 C 12/01/20 02:12 Pulse 86 12/01/20 02:12 Resp 18 12/01/20 02:12 BP 190/108 H 12/01/20 02:12 Pulse Ox 99 12/01/20 02:12 - RESPIRATORY Respiratory Status: Respiratory Rate WNL, Airway Patent, O2 Saturation Stable, Supplemental Oxygen - CARDIOVASCULAR CV Status: Pulse Rate WNL, Blood Pressure Stable - GASTROINTESTINAL GI Status: No Symptoms - PAIN Pain Score: 0 - POST OP HYDRATION Hydration Status: Adequate & Stable - OBSERVATIONS Free Text/Narrative:: no anesthesia complications noted
--- NOTE | 2020-12-01 11:56 | PCM48HPAN ---
Post Anesthesia Note - EVALUATION WITHIN 48HRS OF ANESTHETIC Vital Signs in Normal Range: Yes Patient Participated in Evaluation: Yes Respiratory Function Stable: Yes Airway Patent: Yes Cardiovascular Function Stable: Yes Hydration Status Stable: Yes Pain Control Satisfactory: Yes Nausea and Vomiting Control Satisfactory: Yes Mental Status Recovered: Yes Vital Signs: Last Vital Signs Temp 36.7 C 12/01/20 11:45 Pulse 60 12/01/20 11:45 Resp 13 12/01/20 11:45 BP 129/74 12/01/20 11:45 Pulse Ox 95 12/01/20 11:45 - COMMENTS/OBSERVATIONS Free Text/Narrative:: no anesthesia complications noted
[2020-12-01] MEDS ORDERED: Acetaminophen/oxyCODONE 325-5 MG Tab PO PRN (12:06)
[2020-12-01] MEDS ORDERED: Ibuprofen 600 MG Tab PO PRN (12:06)
--- NOTE | 2020-12-06 07:14 | PCM.EKG ---
#1 Interpretation EKG Date: 12/01/20 Time: 16:51 Rhythm: Other (Sinus bradycardia) Rate (Beats/Min): 49 Braddock: LAD-Left Braddock Deviation (Minimal left axis deviation -4 degrees) P-Wave: Enlarged (Consider left atrial hypertrophy) QRS: Other (Nonspecific intraventricular conduction delay. 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
== END 2020-12-01 15:40 | disposition home or self-care (01) ==
LOC: JD.ED 02:01 → JD.SDS 06:24 → JD.MS 12:59 → JD.SDS 15:40
PROVIDERS: ATTEND Surgery
DX: K80.12 Calculus of gallbladder with acute and chronic cholecystitis without obstruction (principal); Z98.890 Other specified postprocedural states; Z01.812 Encounter for preprocedural laboratory examination; Z20.822 Contact with and (suspected) exposure to COVID-19
CPT/HCPCS: 36415; 47562; 74177; 76705; 80053; 83605; 83690; 84484; 85007; 85027; 88304; 93005; 96365; 96375; 96376; 99285; J0690; J0694; J1170; J2405; J2704; J3010; J3490; J7030; J7120; Q9967; U0002; 00790; 99100

== ENCOUNTER 2024-08-18 19:01 | Inpatient (IN) | payer BC, MEDICARE ==
[2024-08-18] MEDS ORDERED: Sodium Chloride 0.9% 10 ML Syringe FLUSH PRN ×2 (19:23)
[2024-08-18 19:49] LABS: BASOPHILS PERCENT AUTO 0.6 % (0.0-1.0); EOSINOPHILS ABSOLUTE AUTO 0.2 K/mm3 (0.0-0.4); EOSINOPHILS PERCENT AUTO 3.8 % (0.0-6.0); HEMATOCRIT 41.6 % (42.0-52.0); IMMATURE GRAN ABSOLUTE AUTO 0.02 K/mm3 (0.00-0.05); IMMATURE GRAN PERCENT AUTO 0.3 % (0.0-0.4); LYMPHOCYTES ABSOLUTE AUTO 1.6 K/mm3 (1.0-4.8); LYMPHOCYTES PERCENT AUTO 26.3 % (24.0-44.0); MEAN CORPUSCULAR HEMOGLOBIN 30.2 pg (28.0-32.0); MEAN CORPUSCULAR HGB CONC 33.7 g/dl (32.0-36.0); MEAN CORPUSCULAR VOLUME 89.8 fl (83.0-99.0); MEAN PLATELET VOLUME 8.7 fl (9.4-12.4); MONOCYTES ABSOLUTE AUTO 0.5 K/mm3 (0.0-0.8); MONOCYTES PERCENT AUTO 7.2 % (0.0-8.0); NEUTROPHILS ABSOLUTE AUTO 3.9 K/mm3 (1.8-7.7); NEUTROPHILS PERCENT AUTO 61.8 % (41.0-71.0); PLATELET COUNT,PLT 191 K/mm3 (150-400); RED BLOOD CELL COUNT 4.63 M/mm3 (4.52-5.90); WHITE BLOOD CELL COUNT,WBC 6.24 K/mm3 (3.9-11.3)
[2024-08-18 20:08] LABS: A/G RATIO 0.9 (1-2); ALANINE AMINOTRANSFERASE,ALT 35 U/L (16-63); ALBUMIN 3.3 g/dl (3.4-5.0); ALKALINE PHOSPHATASE 96 U/L (46-116); ANION GAP 10.1 (5-15); ASPARTATE AMNIOTRANSFERASE,AST 20 U/L (15-37); BILIRUBIN TOTAL 0.3 mg/dL (0.2-1.0); BLOOD UREA NITROGEN,BUN 21 mg/dL (7-18); BUN/CREATININE RATIO 16.2 (14-18); CARBON DIOXIDE,CO2 25 mEq/L (21-32); CHLORIDE,CL 106 mEq/L (98-107); CREATININE 1.3 mg/dL (0.7-1.3); ESTIMATED GFR 58 mL/min (>60); GLUCOSE RANDOM 112 mg/dL (70-99); MAGNESIUM 2.1 mg/dL (1.8-2.4); PHOSPHORUS 3.4 mg/dL (2.6-4.7); POTASSIUM,K 4.1 mEq/L (3.5-5.1); PROTEIN TOTAL,TP 6.9 g/dl (6.4-8.2); SODIUM,NA 137 mEq/L (136-145)
[2024-08-18] MEDS ORDERED: Acetaminophen 325 MG Tab PO PRN (21:44)
[2024-08-18] MEDS ORDERED: oxyCODONE 5 MG Tab PO PRN (21:44)
[2024-08-18] MEDS ORDERED: Ondansetron 4 MG/2 ML SDV IV PRN (21:44)
[2024-08-18] MEDS ORDERED: Sennosides/Docusate Sodium 50-8.6 MG Tab PO PRN (21:44)
[2024-08-18] MEDS ORDERED: Melatonin 3 MG Tab PO PRN (21:44)
[2024-08-18] MEDS: Heparin Sodium 5,000 Units/ML Vial IVPUSH ONE (22:11)
[2024-08-18] MEDS: Heparin Sodium/D5W 250 ML IV SCH (22:11)
[2024-08-19] MEDS ORDERED: Heparin Sodium 5,000 Units/ML Vial IVPUSH ONE (05:34)
[2024-08-19] MEDS: Heparin Sodium 5,000 Units/ML Vial IVPUSH ONE ×2 (05:49→13:39)
[2024-08-19] MEDS: Tamsulosin 0.4 MG Cap.ER PO SCH ×2 (09:44→21:05)
[2024-08-19] MEDS: Famotidine 20 MG/2 ML SDV IVPUSH SCH (21:05)
[2024-08-20 03:21] LABS: HEMATOCRIT 45.6 % (42.0-52.0); HEMOGLOBIN 15.2 gm/dl (14.0-18.0); MEAN CORPUSCULAR HEMOGLOBIN 29.5 pg (28.0-32.0); MEAN CORPUSCULAR HGB CONC 33.3 g/dl (32.0-36.0); MEAN CORPUSCULAR VOLUME 88.4 fl (83.0-99.0); MEAN PLATELET VOLUME 8.8 fl (9.4-12.4); PLATELET COUNT,PLT 214 K/mm3 (150-400); RED BLOOD CELL COUNT 5.16 M/mm3 (4.52-5.90); WHITE BLOOD CELL COUNT,WBC 7.03 K/mm3 (3.9-11.3)
[2024-08-21] MEDS: Heparin Sodium 5,000 Units/ML Vial IVPUSH ONE (00:22)
[2024-08-21] MEDS ORDERED: Rivaroxaban 10 MG Tab PO ONE (08:30)
[2024-08-21] MEDS: Rivaroxaban 15 MG Tab PO ONE (08:48)
[2024-08-21] MEDS ORDERED: Rivaroxaban 15 MG Tab PO SCH (17:00)
== END 2024-08-21 12:39 | disposition home or self-care (01) | DRG 301 ==
LOC: JD.MS 19:01
PROVIDERS: ADMIT Student in an Organized Health Care Education/Training Program; ATTEND Student in an Organized Health Care Education/Training Program
DX: I82.412 Acute embolism and thrombosis of left femoral vein (principal); I82.432 Acute embolism and thrombosis of left popliteal vein; I82.4Z2 Acute embolism and thrombosis of unspecified deep veins of left distal lower extremity; N40.0 Benign prostatic hyperplasia without lower urinary tract symptoms; Z96.649 Presence of unspecified artificial hip joint; Z86.718 Personal history of other venous thrombosis and embolism; R00.1 Bradycardia, unspecified; Z98.49 Cataract extraction status, unspecified eye; Z90.49 Acquired absence of other specified parts of digestive tract; Z98.890 Other specified postprocedural states
CPT/HCPCS: 36415; 80053; 83735; 84100; 85025; 85027; 85730; A9270-GY; J1644